=== PATIENT | female | born 1985 | race Caucasian/White ===

== ENCOUNTER 2017-10-15 02:55 | Outpatient (CLI) | payer MEDICAID, OTHER ==
[2017-10-15 03:14] VITALS: BP 133/79
--- NOTE | 2017-10-15 04:24 | Ultrasound Report ---
FINAL REPORT PROCEDURE: US OB FOLLOW UP TECHNIQUE: Real-time limited sonographic examination was performed for evaluation of size, position, heartbeat, fluid volume for each fetus with image documentation (1 or more fetuses). CPT 80995 HISTORY: vaginal leaking COMPARISON: No prior studies are available for comparison. FINDINGS: MATERNAL Uterus: Within normal limits . Cervix length: 3.2 cm. Internal Os: Closed . FETUS IUP: Single living intrauterine . Position: Cephalic. Placental position: Anterior and fundal, without previa . Amniotic fluid volume: Oligohydramnios. The amniotic fluid index is 0.8 centimeters. Heart rate and rhythm: 170 BPM, Regular . anatomic survey: Not performed. MEASUREMENTS BPD: 6.26 centimeters correspond to 25 weeks and 3 days. HC: 23.67 centimeters correspond to 25 weeks and 5 days. AC: 19.77 centimeters correspond to 24 weeks and 3 days. FL: 4.67 centimeters correspond to 25 weeks and 4 days. Mean Gestational Age (composite criteria): 25 weeks and 2 days. Ratio biometry: Normal . Estimated Weight: 760 grams. Interval growth: No prior exam. Estimated Due Date (earliest scan): 01/26/2018. IMPRESSION: 1. Single living intrauterine gestation at approximately 25 weeks and 2 days. 2. EDC by US 01/26/2018. 3. There is oligohydramnios.
[2017-10-15] MEDS ORDERED: LACTATED RINGERS 1,000 ML ONE (05:48)
[2017-10-15] MEDS ORDERED: LACTATED RINGERS 1,000 ML IV SCH (05:50)
== END 2017-10-15 07:16 | disposition home or self-care (01) ==
LOC: TRG 02:55
PROVIDERS: ATTEND Obstetrics & Gynecology
DX: O42.912 Preterm premature rupture of membranes, unspecified as to length of time between rupture and onset of labor, second trimester (principal); Z3A.25 25 weeks gestation of pregnancy
CPT/HCPCS: 59025; 76816; 96360; J7120